=== PATIENT | female | born 1955 | race Caucasian/White ===

== ENCOUNTER 2016-10-18 07:16 | Observation (INO) | payer OTHER ==
[~2016-10-18] VITALS: Ht 160 cm; Wt 76.0 kg
[~2016-10-18 07:16] MED LIST: ADULT LOW DOSE81 MG PO; ALBUTEROL2.5 MG/NEB IN; AMLODIPINE10 M2 PO; AMOXI/CLAVULANA1 TAB PO; ATORVASTATIN CA10 MG PO; B12 PO; BENADRYL 25MG C25 MG PO; HYDROCODONE-APA1 TA2 PO; HYDROCODONE1 TABLET PO; LORTAB 5/3251 TAB PO; PHENERGAN 25MG.25 M1 PO; RELAFEN750 MG OR; SKELAXIN 800MG800 MG PO; TYLENOL W/CODEI1 TA2 PO; VITAMIN D31000 IU PO; ZOFRAN4 MG PO
[2016-10-18 07:20] VITALS: BP 129/79
[2016-10-18 07:47] LABS: LYMPH # 0.6 K/mm3 (0.7-4.5); LYMPH % 5.1 % (10-50.0)
[2016-10-18 07:57] LABS: HEMOGLOBIN 15.5 g/dL (12.2-16.2)
--- NOTE | 2016-10-18 07:58 | Emergency Room Report ---
History of Present Illness Time Seen by MD Sears Presenting Problem in Triage Pt arrived:Wheelchair Presenting Problem:has been vomiting "white slime" since 2099. 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 N Clinical Suspician of Infection? N Mental Status: 1 - Regular (Normal Baseline) Sepsis Risk:Low Sepsis Risk Have you (or family members/close friends) recently traveled outside the [place]? N If Yes, where/when: Have you had exposure to infectious disease within the past month? TB? Other? Specify: Comment The patient complains of epigastric pain, vomiting, and diarrhea. She says it started about 9 PM last night. She describes the vomitus as white and slimy. No fever. The epigastric pain is worse when she vomits. No pain at present. She says that she was treated for pneumonia with a Z-Tomas 2 weeks ago. She still has drainage and gagging from it. She did not have a chest x-ray at that time. ALLERGIES Coded Allergies: morphine (Intermediate, 12/17/15) Home Medications Reported Medications Amlodipine Besylate (Amlodipine) 10 MG PO DAILY Diphenhydramine Hcl (Benadryl 25MG CAP) 25 MG PO QHSP PRN SLEEP History Medical History General CAD? No Angina: No [place]: No Hypertension? Yes Hyperlipidemia? No CHF? No COPD? No Asthma? No Anemia? Yes Hernia? Yes Thyroid Problems? No Hypothyroidism? No CVA? No Seizures? No Diabetes? No End Stage Renal Disease? No UTI? No Stones? No GB Disease: No Nephritic Syndrome? No Asplenia? No Hepatitis? No Sickle Cell Disease? No Arthritis? Yes Cataracts? No Glaucoma? No MRSA? No TB? No Cancer? No Immunization Hx DT/Tetanus Unknown Flu Refused Pneumonia Refuses Surgical Hx Previous Surgery?Y Hysterectomy Tubal Ligation CYST REMOVAL FROM FOOT LEFT ANKLE Family History Family Hx Diabetes Yes CAD Yes Hypertension Yes Hyperlipidemia No Cancer Yes TB No Social History Smoking Hx Smoker: Never Smoker Tobacco: No Alcohol Alcohol: No Review of Systems All Other Systems Reviewed and Negative ENT see HPI. Respiratory denies shortness of breath Cardiovascular denies chest pain Gastrointestinal abdominal pain, diarrhea, vomiting Genitourinary denies: dysuria, frequency. Physical Exam Vital Signs Vital Signs Date Time Temp Pulse Resp B/P Pulse O2 O2 Flow FiO2 Ox Delivery Rate 10/18 1120 82 16 151/66 94 10/18 1022 84 16 111/57 92 10/18 0948 89 16 119/64 94 10/18 0859 98.6 80 20 130/80 98 10/18 0855 20 10/18 0816 98.5 80 20 128/70 98 10/18 0720 98.6 79 22 129/79 97 General Appearance normal appearance, WD/WN Eye Exam - bilateral eye normal exam, bilateral eye PERRL, bilateral eye EOMI Ear, Nose, Throat hearing grossly normal, normal ENT inspection Neck normal inspection, non-tender, supple, full range of motion Respiratory Status Yes: trachea midline, chest symmetrical, non tender chest. No: respiratory distress. Lung Sounds bilateral: normal breath sounds, lungs clear. 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 Yes Micah was queried for this patient? Yes Reference #: [id number] Comment 3 rxs for norco, last was 12/10/16 Results/Orders Laboratory Tests 10/18/16 0835: Urine Color YELLOW, Urine Appearance CLEAR, Urine pH 7.0, Ur Specific [place] 1.015, Urine Protein TRACE H, Urine Ketones TRACE H, Urine Blood NEGATIVE, Urine Nitrate NEGATIVE, Urine Bilirubin NEGATIVE, Urine Urobilinogen 0.2, Ur Leukocyte Esterase NEGATIVE, Ur Squamous Epith Cells 3-5, Urine Bacteria 1+, Urine Mucus 2+, Urine Glucose TRACE H 10/18/16 0735: Troponin I < 0.02 10/18/16 0735: Sodium 138, Potassium 4.8, Chloride 101, Carbon Dioxide 24, BUN 12, Creatinine 0.8, Estimated Creat Clear 87, Estimated GFR (MDRD) 72, Glucose 212 H, Calcium 8.8, Total Bilirubin 0.7, AST 34, ALT 30, Alkaline Phosphatase 134 H, Total Protein 7.9, Albumin 3.7, Globulin 4.2 H, Albumin/Globulin Ratio 0.9 L, Amylase 95, Lipase 90, WBC 11.2 H, RBC 4.70, Hgb 15.5, Hct 45.9, MCV 97.7, RDW 13.2, Plt Count 439 H, MPV 5.9 L, Gran % 93.0 H, Gran # 10.4 H, Total Counted 100, Lymphocytes % 5.1 L, Monocytes % 0.9 L, Eosinophils % 1.0, Basophils % 0.1, Neutrophils 90 H, Lymphocytes (Manual) 7 L, Lymphocytes # 0.6 L, Monocytes (Manual) 3, Monocytes # 0.1, Eosinophils # 0.1, Basophils # 0.0, Platelet Estimate MOD INCREASE, Stomatocytes 1+, PUBS MCHC 33.8, MCH 33.0 H Current Medication Orders Sig/Mallory Start time Last Medication Dose Route Stop Time Status Admin Ondansetron HCl 0 .STK-MED ONE 10/18 0948 DC .ROUTE Ondansetron HCl 4 MG ONCE ONE 10/18 0845 DC 10/18 IV 10/18 0946 0949 Hydromorphone HCl 0.5 MG ONCE ONE 10/18 0900 DCr 10/18 IV 10/18 0901 0855 Hydromorphone HCl 0 .STK-MED ONE 10/18 0854 DCr .ROUTE Ondansetron HCl 4 MG ONCE ONE 10/18 0800 DC 10/18 IV 10/18 0801 0751 Ondansetron HCl 0 .STK-MED ONE 10/18 0751 DC .ROUTE Sodium Chloride 1,000 ML .Q1H1M 10/18 0745 DC 10/18 IV 10/18 0845 0743 Sodium Chloride 10 ML PRN PRN 10/18 0745 AC IV 10/19 0731 Sodium Chloride 1,000 ML .STK-MED ONE 10/18 0733 DC IV Sodium Chloride 10 ML PRN PRN 10/18 0730 AC IV 10/19 0729 Orders Procedure Date/time Status Decision to admit 10/18 1111 Active DIARRHEA PANEL, PCR 04/11 0809 Active ELECTROCARDIOGRAM REQUEST 10/18 805 Active TROPONIN I 10/18 805 Complete DIFFERENTIAL-WBC 10/18 734 Complete IV SALINE LOCK 10/18 730 Active URINALYSIS/COMPLETE 10/18 730 Complete LIPASE 10/18 730 Complete CBC WITH AUTO DIFF 10/18 730 Complete CHEM 12 PROFILE 10/18 730 Complete AMYLASE 10/18 730 Complete 12 LEAD EKG-ZACHARY (INITIAL) 10/18 UNK Active CM/EKG CM/EKG Comments EKG interpreted by Arturo Santo MD: Rhythm: sinus Rate: 80 [place]: normal Ectopy: none Conduction: normal ST Segment Changes: none T Wave Changes: Nonspecific Q Waves: none No evidence of acute ischemia or injury No change from prior electrocardiogram XRAY/CT/US XRAY/CT/US XRAY chest Comment X-ray interpreted by Arturo Santo M.D. No infiltrate, pneumothorax, pleural effusion, or wide mediastinum. Progress - 8:45 AM: Recheck patient and discussed results. She states epigastric pain is returned and she is requesting pain medication. She states that she was admitted in August for a "bug" with abdominal pain, vomiting and diarrhea. She says she was also diagnosed with a urinary tract infection. She had a CT scan and gallbladder ultrasound done at that time. Results were reviewed by me. I also reviewed her emergency department record and discharge summary from that visit. discussed blood sugar results. reviewed prior results - elevated in the past also. The patient says she is unaware that her blood sugar has ever been elevated. Advised to follow-up with this result with her primary care physician. 9:40 AM: Patient states that she vomited at the time she was getting pain medication. Currently states she just feels drowsy. Request another dose of nausea medicine. 11 AM: Recheck patient. She denies nausea or pain, but says her hands feel numb. She says she doesn't feel well and would prefer that I call her physician to see if he will admit her for observation. 11:11 AM: I have discussed the case with Dr. Barton who agrees to admit the patient to the hospital. We discussed the patient's clinical information, including history, exam, laboratory and radiology results and ED course. Per hospital procedure, I will write temporary bridge inpatient orders on the patient. Specific orders requested by the admitting physician: hydration Departure Departure Disposition Still a Patient Clinical Impression Primary Impression: Epigastric pain Secondary Impressions: Diarrhea Qualifiers: Diarrhea type: unspecified type Qualified Code: R19.7 - Diarrhea, unspecified Vomiting Qualifiers: Vomiting type: unspecified Vomiting Intractability: intractable Nausea presence: with nausea Qualified Code: R11.2 - Nausea with vomiting, unspecified Condition STABLE Referrals Cody Barton MD (Family) ED Critical Care Critical Care No at [phone]
[2016-10-18 08:35] LABS: NEUTROPHILS 90 % (42-76)
[2016-10-18 08:37] LABS: STOMATOCYTE 1+
[2016-10-18 08:48] LABS: URINE BILIRUBIN - DIPSTICK NEGATIVE (NEG); URINE BLOOD NEGATIVE (NEG)
--- NOTE | 2016-10-18 09:29 | RADIOLOGY REPORT PS360 ---
CHEST(2 VIEWS-NOT PORTABLE) COMPARISON: Portable upright chest 11/25/2015 HISTORY: Follow-up suspected pneumonia TECHNIQUE: PA and lateral chest FINDINGS: The lung lord are well expanded and appear clear of infiltrate. The cardiac silhouette and vascularity are normal and is no pleural fluid. IMPRESSION: Negative chest
[2016-10-18 13:30] VITALS: BP 138/65
[2016-10-18 13:31] VITALS: BP 138/65
[2016-10-18] MEDS ORDERED: ALENDRONATE SOD70 M1 PO (13:47)
[2016-10-18 15:33] VITALS: BP 131/74
--- NOTE | 2016-10-18 16:36 | HISTORY AND PHYSICAL REPORT ---
Demographics: Admit date: 10/18/16 Chief complaint: Vomiting PRIMARY DIAGNOSIS: gastritis Allergies: Coded Allergies: morphine (Intermediate, 12/17/15) History of present illness: History of present illness: 61-year-old female presented to the emergency department early this morning after approximately 9-10 hours of vomiting. Patient tells me yesterday she had abdominal cramping throughout the day. She ate supper around her usual time at around 9 PM began vomiting. 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 Patient regurgitated her supper in addition to that most of her emesis is described as white phlegm. In the emergency department vomiting seemed to cease. Patient felt quite poorly and decision was made to keep her for hydration with IV fluids, use Zofran as an antiemetic. Past medical history: Family HX Family Hx Insignificant No Diabetes Yes CAD Yes Hypertension Yes Hyperlipidemia No Cancer Yes TB No Immunization HX DT/Tetanus Unknown Flu Refused Pneumonia Refuses TB Test in last year No General CAD? No Angina: No [place]: No Hypertension? Yes Hyperlipidemia? No CHF? No COPD? No Asthma? No Anemia? Yes Hernia? Yes Thyroid Problems? No Hypothyroidism? No CVA? No Seizures? No Diabetes? No UTI? No Stones? No GB Disease: No Nephritic Syndrome? No Asplenia? No Hepatitis? No Sickle Cell Disease? No Arthritis? Yes Cataracts? No Glaucoma? No MRSA? No TB? No Cancer? No Past Surgical HX Previous Surgery?Y Hysterectomy Tubal Ligation CYST REMOVAL FROM FOOT LEFT ANKLE Current home meds: Reported Medications Amlodipine Besylate (Amlodipine) 10 MG PO DAILY Alendronate Sodium 70 MG PO WEEKLY #4 Diphenhydramine Hcl (Benadryl 25MG CAP) 25 MG PO QHSP PRN SLEEP Social Hx: Smoking HX Tobacco No Are you/the child exposed to second-hand smoke: No Alcohol Alcohol: No Hx of Drug Use Drug Use? No Review of systems: Constitutional weakness. Respiratory no symptoms reported. Cardiovascular no symptoms reported Gastrointestinal/Abdominal see HPI Genitourinary no symptoms reported. Musculoskeletal no symptoms reported. Neurological Yes: no symptoms reported. Exam: Lab data for last 24 hours: Laboratory Tests 10/18/16 0835: Urine Color YELLOW, Urine Appearance CLEAR, Urine pH 7.0, Ur Specific [place] 1.015, Urine Protein TRACE H, Urine Ketones TRACE H, Urine Blood NEGATIVE, Urine Nitrate NEGATIVE, Urine Bilirubin NEGATIVE, Urine Urobilinogen 0.2, Ur Leukocyte Esterase NEGATIVE, Ur Squamous Epith Cells 3-5, Urine Bacteria 1+, Urine Mucus 2+, Urine Glucose TRACE H 10/18/16 0735: Troponin I < 0.02 10/18/16 0735: Sodium 138, Potassium 4.8, Chloride 101, Carbon Dioxide 24, BUN 12, Creatinine 0.8, Estimated Creat Clear 87, Estimated GFR (MDRD) 72, Glucose 212 H, Calcium 8.8, Total Bilirubin 0.7, AST 34, ALT 30, Alkaline Phosphatase 134 H, Total Protein 7.9, Albumin 3.7, Globulin 4.2 H, Albumin/Globulin Ratio 0.9 L, Amylase 95, Lipase 90, WBC 11.2 H, RBC 4.70, Hgb 15.5, Hct 45.9, MCV 97.7, RDW 13.2, Plt Count 439 H, MPV 5.9 L, Gran % 93.0 H, Gran # 10.4 H, Total Counted 100, Lymphocytes % 5.1 L, Monocytes % 0.9 L, Eosinophils % 1.0, Basophils % 0.1, Neutrophils 90 H, Lymphocytes (Manual) 7 L, Lymphocytes # 0.6 L, Monocytes (Manual) 3, Monocytes # 0.1, Eosinophils # 0.1, Basophils # 0.0, Platelet Estimate MOD INCREASE, Stomatocytes 1+, PUBS MCHC 33.8, MCH 33.0 H Admission vital signs: 1ST Vital Signs Result Date Time Pulse Ox 97 10/18 0720 B/P 129/79 10/18 07 Temp 98.6 10/18 07 Pulse 79 10/18 0720 Resp 22 10/18 0720 O2 Delivery ROOM AIR 10/18 1330 Additional information: 61-year-old female who appears older than her stated age. Affect is flat. She does not appear to be toxic. HEENT exam is grossly normal. Appropriate lungs are clear to auscultation. Heart has a regular rate and rhythm. Abdomen is soft, nontender nondistended. Of note patient does admit to epigastric pain with deep palpation. Patient has movement intact in all 4 extremities Plan: Problem List 1. Gastritis 2. Hyperglycemia Plan: 1. Rehydrate with IV fluids 2. Zofran for nausea, Pepcid 20 mg IV tonight 3. Clear liquids for supper and if she tolerates that advanced to full liquids for breakfast. at 1635
[2016-10-18 19:55] VITALS: BP 133/70
[2016-10-19 03:56] VITALS: BP 129/66
[2016-10-19 06:54] LABS: LYMPH # 2.3 K/mm3 (0.7-4.5); LYMPH % 40.5 % (10-50.0)
[2016-10-19 06:57] LABS: HEMOGLOBIN 13.6 g/dL (12.2-16.2)
--- NOTE | 2016-10-19 07:17 | ACUTE CARE PROGRESS NOTE (QUA) ---
Progress Notes Subjective Date 10/19/16 Time 0714 Note Patient notes she had a lot of upset stomach after her clear liquid diet at supper. She did not have any vomiting. She has not had any diarrhea. She is in no distress. Abdomen is soft, nontender, nondistended. Bowel sounds are present. Patient is recovering from her gastritis. We will see how she does with breakfast and lunch and then decide about discharge Objective Findings Last VS-Temp:98.1 B/P:129/66 Pulse:70 Resp:20 SaO2:94 ROOM AIR Last weight lbs:167 oz:9 K.006 Method:Bed Scales Laboratory Tests 10/19/16 0611: Sodium 142, Potassium 3.2 L, Chloride 107, Carbon Dioxide 26, BUN 5 L, Creatinine 0.8, Estimated Creat Clear 86, Estimated GFR (MDRD) 72, Glucose 107 H, Calcium 7.9 L, WBC 5.7, RBC 4.07 L, Hgb 13.6, Hct 39.9, MCV 98.0 H, RDW 13.2, Plt Count 338, MPV 5.8 L, Gran % 53.3, Gran # 3.0, Lymphocytes % 40.5, Monocytes % 4.6, Eosinophils % 0.9, Basophils % 0.7, Lymphocytes # 2.3, Monocytes # 0.3, Eosinophils # 0.1, Basophils # 0.0, PUBS MCHC 33.4, MCH 32.8 H 10/18/16 0835: Urine Color YELLOW, Urine Appearance CLEAR, Urine pH 7.0, Ur Specific [place] 1.015, Urine Protein TRACE H, Urine Ketones TRACE H, Urine Blood NEGATIVE, Urine Nitrate NEGATIVE, Urine Bilirubin NEGATIVE, Urine Urobilinogen 0.2, Ur Leukocyte Esterase NEGATIVE, Ur Squamous Epith Cells 3-5, Urine Bacteria 1+, Urine Mucus 2+, Urine Glucose TRACE H 10/18/16 0735: Troponin I < 0.02 10/18/16 0735: Sodium 138, Potassium 4.8, Chloride 101, Carbon Dioxide 24, BUN 12, Creatinine 0.8, Estimated Creat Clear 87, Estimated GFR (MDRD) 72, Glucose 212 H, Calcium 8.8, Total Bilirubin 0.7, AST 34, ALT 30, Alkaline Phosphatase 134 H, Total Protein 7.9, Albumin 3.7, Globulin 4.2 H, Albumin/Globulin Ratio 0.9 L, Amylase 95, Lipase 90, WBC 11.2 H, RBC 4.70, Hgb 15.5, Hct 45.9, MCV 97.7, RDW 13.2, Plt Count 439 H, MPV 5.9 L, Gran % 93.0 H, Gran # 10.4 H, Total Counted 100, Lymphocytes % 5.1 L, Monocytes % 0.9 L, Eosinophils % 1.0, Basophils % 0.1, Neutrophils 90 H, Lymphocytes (Manual) 7 L, Lymphocytes # 0.6 L, Monocytes (Manual) 3, Monocytes # 0.1, Eosinophils # 0.1, Basophils # 0.0, Platelet Estimate MOD INCREASE, Stomatocytes 1+, PUBS MCHC 33.8, MCH 33.0 H Assessment/Plan Problem List 1. Gastritis 2. Hyperglycemia Patient condition Improving This inpt stay is expected to cross 2 MNs from start of care No at 0716
--- NOTE | 2016-10-19 07:18 | PHARMACY CLINIC NOTE ---
Patient Demographics Patient Demographics Admission date: 10/18/16 Date: 10/19/16 Time: 0718 Allergies Coded Allergies: morphine (Intermediate, 12/17/15) HEIGHT- FT: 5 IN: 3.00 K.006 VTE General Information Labs: Laboratory Tests 10/19 10/18 0611 0735 Hematology Hgb (12.2 - 16.2 g/dL) 13.6 15.5 Hct (37.0 - 47.0 %) 39.9 45.9 Plt Count (142 - 424 K/mm3) 338 439 H Disclaimer The following section includes nursing documentation that has been pulled in for pharmacy review. Patient's VTE score: 1 Patient's VTE Risk: VERY LOW RISK Clinical trial participant? No VTE prophylaxis [id number] VTE prophylaxis ordered? Yes Type of prophylaxis/treatment: JAZMINE at 0718
[2016-10-19 08:00] VITALS: BP 126/64
[2016-10-19 09:40] VITALS: BP 126/64
[2016-10-19] MEDS ORDERED: ONDANSETRON4 MG PO (13:21)
[2016-10-19 16:53] VITALS: BP 126/64
--- NOTE | 2016-10-20 07:26 | Discharge Summary ---
Demographics Admit date: 10/18/16 Discharge date: 10/19/16 Discharge diagnoses Problem List 1. Gastritis 2. Hyperglycemia History of present illness History of present illness 61-year-old female presented to the emergency department early this morning after approximately 9-10 hours of vomiting. Patient tells me yesterday she had abdominal cramping throughout the day. She ate supper around her usual time at around 9 PM began vomiting. 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 Patient regurgitated her supper in addition to that most of her emesis is described as white phlegm. In the emergency department vomiting seemed to cease. Patient felt quite poorly and decision was made to keep her for hydration with IV fluids, use Zofran as an antiemetic. Patient was admitted and started on normal saline. Clear liquid diet was ordered which the evening of admission cause some stomach cramping. Patient felt improved the following morning and diet was advanced to full liquids which she tolerated for both breakfast and lunch. When patient did not have any further problems with meals she was discharged home. She will follow-up in the office in one week. Medications Medications: Discharge meds are as noted. Follow up Follow up in office in: 7 DAYS with: Cody Barton MD at [phone]
[2016-10-20] MEDS ORDERED: PHENERGAN120 ML/BOT PO (10:08)
[2016-10-26] MEDS ORDERED: FLONASE 50 MCG16 GM (07:09)
[2016-10-26] MEDS ORDERED: CLARITIN 10MG T10 MG PO (07:10)
[2016-10-26] MEDS ORDERED: METOCLOPRAMIDE H5 M2 PO (14:13)
[2016-10-26] MEDS ORDERED: PEPCID20 MG PO (14:13)
== END 2016-10-19 17:00 | disposition home or self-care (01) ==
LOC: ER 07:16 → 2ND 11:30
PROVIDERS: Emergency Medicine
DX: K29.70 Gastritis, unspecified, without bleeding (principal)
CPT/HCPCS: G0378; J2405

== ENCOUNTER 2016-10-20 06:45 | Emergency (ER) | payer OTHER ==
[~2016-10-20] VITALS: Ht 160 cm; Wt 75.8 kg
[~2016-10-20 06:45] MED LIST changes: +ALENDRONATE SOD70 M1 PO; +ONDANSETRON4 MG PO
[2016-10-20 07:02] LABS: URINE BILIRUBIN - DIPSTICK NEGATIVE (NEG); URINE BLOOD NEGATIVE (NEG)
[2016-10-20 07:25] LABS: URINE SQUAMOUS CELLS OCC #/hpf (0-5)
[2016-10-20 07:29] LABS: LYMPH % 16.2 % (10-50.0)
--- NOTE | 2016-10-20 07:53 | Emergency Room Report ---
History of Present Illness Time Seen by [id number] Presenting Problem in Triage Pt arrived:Wheelchair Presenting Problem:nausea/vomiting/diarrhea/abdominal pain Onset of symptoms date/time:/ or onset unknown for:MEDICAL HX UNKNOWN Treatment Prior to Arrival: [employer] Provided by: Sepsis Risk Assessment: Temp: 97.7 B/P: 161/95 MAP: 127 Pulse: 71 Resp: 20 Recent fever? N Clinical Suspician of Infection? N Mental Status: 1 - Regular (Normal Baseline) Sepsis Risk:Low Sepsis Risk Have you (or family members/close friends) recently traveled outside the [place]? N If Yes, where/when: Have you had exposure to infectious disease within the past month? TB? Other? Specify: Source patient, RN notes reviewed, family, old records Exam Limitations no limitations Comment pt with abd pain with vomiting and diarrhea with recent admit/d/c last pm Cardiac Chest Pain Chest pain indicative of cardiac No Timing/Duration this morning Severity moderate ALLERGIES Coded Allergies: morphine (Intermediate, 12/17/15) Home Medications Active Scripts ONDANSETRON HCL (Ondansetron HCl 4mg Tab) 4 MG PO Q8HP PRN NAUSEA #20 TAB Prov: 10/19/16 Reported Medications Amlodipine Besylate (Amlodipine) 10 MG PO DAILY Alendronate Sodium 70 MG PO WEEKLY #4 TAB Diphenhydramine Hcl (Benadryl 25MG CAP) 25 MG PO QHSP PRN SLEEP (Samia Ortega MD) History Medical History General CAD? No Angina: No [place]: No Hypertension? Yes Hyperlipidemia? No CHF? No COPD? No Asthma? No Anemia? Yes Hernia? Yes Thyroid Problems? No Hypothyroidism? No CVA? No Seizures? No Diabetes? No End Stage Renal Disease? No UTI? No Stones? No GB Disease: No Nephritic Syndrome? No Asplenia? No Hepatitis? No Sickle Cell Disease? No Arthritis? Yes Cataracts? No Glaucoma? No MRSA? No TB? No Cancer? No Immunization Hx DT/Tetanus Unknown Flu Refused Pneumonia Refuses Surgical Hx Previous Surgery?Y Hysterectomy Tubal Ligation CYST REMOVAL FROM FOOT LEFT ANKLE Family History Family Hx Diabetes Yes CAD Yes Hypertension Yes Hyperlipidemia No Cancer Yes TB No Social History Smoking Hx Smoker: Never Smoker Tobacco: No Alcohol Alcohol: No Drugs none (Samia Ortega MD) Review of Systems All Other Systems Reviewed and Negative Constitutional denies fever Eyes denies drainage, denies photophobia ENT denies: ear pain, epistaxis, throat pain. Respiratory denies cough, denies shortness of breath, denies wheezing Cardiovascular denies chest pain, denies syncope Gastrointestinal see HPI, diarrhea, vomiting Genitourinary denies: dysuria, frequency, hesitancy, hematuria. Musculoskeletal denies back pain, denies joint pain, denies neck pain Skin denies rash Psychiatric/Neurological denies headache, denies seizure (Samia Ortega MD) Physical Exam Vital Signs Vital Signs Date Time Temp Pulse Resp B/P Pulse O2 O2 Flow FiO2 Ox Delivery Rate 10/20 0908 69 20 160/83 100 10/20 0826 69 20 162/89 98 10/20 0738 97.7 71 20 161/95 100 10/20 0651 97.8 69 20 193/94 99 - WBC >12,000 or <4,000 or 10% bands? 2 or more SIRS Criteria Met? B/P:161/95 MAP:127 Creatinine >2.0? UA output<0.5ml/kg/hr for 2 hrs? Platelet count >100,000? Lactate >2.0mmol/1? INR >1.2 or PTT > than 60 sec? Evidence of Organ Dysfunction? Provider documented clinical suspician of infection? N Sepsis Criteria Count: 1 Sepsis Risk: Low Sepsis Risk General Appearance no apparent distress Eye Exam - bilateral eye PERRL, bilateral eye EOMI Ear, Nose, Throat normal ENT inspection Neck supple Respiratory Status No: respiratory distress. Cardiovascular regular rate/rhythm Peripheral Pulses Pulses normal Yes Gastrointestinal soft, no guarding, no rebound, tenderness Extremities normal inspection Strength 4 Upper Ext (L), 4 Upper Ext (R), 4 Lower Ext (L), 4 Lower Ext (R) Neurologic alert, solid plasterer II-XII nml as tested, no motor/sensory deficits Reflexes Reflexes normal Yes Mental status normal mood/affect Skin intact (Samia Ortega MD) Medical Decision Making LABS/Meds/Orders Pt receiving controlled substance in ED? No Results/Orders Laboratory Tests 10/20/16725: Creatine Kinase 62, CK-MB (CK-2) Rel Index 0.8, CK and CKMB Interp < 0.5, Troponin I < 0.02 10/20/16 0726: Sodium 140, Potassium 3.3 L, Chloride 102, Carbon Dioxide 25, BUN 5 L, Creatinine 1.0, Estimated Creat Clear 69, Estimated GFR (MDRD) 56 L, Glucose 173 H, Calcium 8.8, Total Bilirubin 0.7, AST 17, ALT 32, Alkaline Phosphatase 122 H, Total Protein 7.9, Albumin 3.8, Globulin 4.1 H, Albumin/Globulin Ratio 0.9 L, Amylase 54, Lipase 97, WBC 6.2, RBC 4.58, Hgb 15.0, Hct 44.0, MCV 96.2, RDW 13.1, Plt Count 337, MPV 5.7 L, Gran % 79.8, Gran # 5.0, Lymphocytes % 16.2 , Monocytes % 2.9, Eosinophils % 0.7, Basophils % 0.4, Lymphocytes # 1.0, Monocytes # 0.2, Eosinophils # 0.0, Basophils # 0.0, PUBS MCHC 34.2, MCH 32.9 H 10/20/16 0649: Urine Color YELLOW, Urine Appearance CLEAR, Urine pH 7.0, Ur Specific [place] 1.010, Urine Protein NEGATIVE, Urine Ketones 1+ H, Urine Blood NEGATIVE, Urine Nitrate NEGATIVE, Urine Bilirubin NEGATIVE, Urine Urobilinogen 0.2, Ur Leukocyte Esterase NEGATIVE, Urine WBC OCC, Ur Squamous Epith Cells OCC, Urine Bacteria 1+ , Urine Mucus OCC, Urine Glucose NEGATIVE Current Medication Orders Sig/Mallory Start time Last Medication Dose Route Stop Time Status Admin Promethazine HCl 0 .STK-MED ONE 10/20 0940 DC .ROUTE Promethazine HCl 6.25 MG ONCE ONE 10/20 914 DC 10/20 IV 10/20 0916 0943 Sodium Chloride 25 ML ONCE ONE 10/20 0815 DC 10/20 IV 10/20 0929 0944 Sodium Chloride 10 ML PRN PRN 10/20 0745 AC IV 10/21 0739 Ondansetron HCl 4 MG ONCE ONE 10/20 0700 DC 10/20 IV 10/20 0701 0710 Sodium Chloride 1,000 ML .Q1H1M 10/20 07 DC 10/20 IV 0710 Sodium Chloride 1,000 ML .STK-MED ONE 10/20 0700 DC IV Ondansetron HCl 0 .STK-MED ONE 10/20 0659 DC .ROUTE Orders Procedure Date/time Status DIET-NOTHING BY MOUTH 10/[address] SCAN REQ 10/20 0755 Complete 12 LEAD EKG-BESSON (INITIAL) 10/20 0745 Active ELECTROCARDIOGRAM REQUEST 10/20 0741 Active IV SALINE LOCK 10/20 0740 Active CARDIAC ENZYMES 10/20 0740 Complete URINALYSIS/COMPLETE 10/20 0658 Complete LIPASE 10/20 0658 Complete COMPLETE METABOLIC PANEL 10/20 0658 Complete CBC WITH AUTO DIFF 10/20 0658 Complete AMYLASE 10/20 0658 Complete 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 ST/Twave chgs (Shannon SONG,Samia Thompson) XRAY/CT/US XRAY/CT/US XRAY chest XR interpretation by reviewed by me (report reviewed) Xray Results normal/NAD, no infiltrates, normal heart size, normal lung inflation teja CT abdomen, pelvis CT interpretation by reviewed by me (report reviewed) Time results known: 900 CT Results normal/NAD (diverticulosis) Progress ED Progress Notes 1 Date 10/20/16 Time 0827 Comment Patient examined at change of shift at 0800; she has persistent vomiting, appears to be clear, but lungs are clear, abdomen soft with no m/r/g. Will repeat Zofran while awaiting CT results; dc note from Dr. Barton reviewed. states that on return home yesterday he gave her half a cup of soup and she vomited it at about midnight. No fever. States chest hurts when vomiting. Cardiac enzymes and EKG normal. CXR negative; labs negative. ED Progress Notes 2 Date 10/20/16 Time 0900 Comment Patient feeling requesting additional medication prior to trying sips of fluids. Labs and CT essentially normal other than diverticulosis. ED Progress Notes 3 Date 10/20/16 Time 1005 Comment Keeping fluids down PO s/p Phenergan IV; will f/u PCP 24 hours. (Bill SONG, Karrie Sutherland) Departure Departure Time of Disposition 0801 Disposition Still a Patient Condition STABLE Referrals Cody Barton MD (Family) ED Critical Care Critical Care No (Shannon SONG,Samia Thompson) Departure Time of Disposition 1006 Clinical Impression Primary Impression: Enteritis Secondary Impressions: Diverticulosis Qualifiers: Diverticulosis site: unspecified location Diverticulosis bleeding: diverticulosis without bleeding Qualified Code: K57.90 - Diverticulosis of intestine, part unspecified, without perforation or abscess without bleeding Vomiting Qualifiers: Vomiting type: unspecified Vomiting Intractability: non-intractable Nausea presence: with nausea Qualified Code: R11.2 - Nausea with vomiting, unspecified Patient Instructions DI for Vomiting -- Adult Additional Instructions See in one to two days; Rx for Phenergan; recommend clear liquids for the next 24 hours, advance as tolerated. Tylenol as needed for musculoskeletal pain; advise against Ibuprofen at this time as may cause GI upset. Discharge Counseling Counseled pt/family regarding diagnosis, test results, medications/RX, home care, follow up needs Prescriptions Current Visit Scripts Promethazine Hcl (Phenergan Syrup) 5 ML PO Q4H PRN #100 ML EVERY FOUR HOURS NEEDED FOR NAUSEA AND VOMITING ED Critical Care Critical Care No (Karrie Khan MD) at 0803 at 1009
--- NOTE | 2016-10-20 08:25 | RADIOLOGY REPORT PS360 ---
CHEST-PORTABLE HISTORY: PRODUCTIVE COUGH, REPORTING CHEST PAIN ORDERING PHYSICIAN: Karrie Khan MD PATIENT AGE: 61 years COMPARISON: 10/18/2016 FINDINGS: The cardiomediastinal silhouette and pulmonary vascularity are within normal limits. The lungs are clear without infiltrates, suspicious nodules, or pleural effusions. No acute bony abnormalities. IMPRESSION: Negative chest, no acute finding
--- NOTE | 2016-10-20 08:46 | RADIOLOGY REPORT PS360 ---
CT ABD PELVIS W/O CONTRAST CLINICAL INDICATION: Midepigastric pain with nausea and vomiting ABD PAIN ORDERING PHYSICIAN: Karrie Khan MD PATIENT AGE: 61 years COMPARISON: 08/20/2016 TECHNIQUE: Axial images obtained with sagittal and coronal reformats. PROCEDURE: Oral Contrast: None IV Contrast: None . FINDINGS: No acute finding in the lung bases. Small hiatal hernia. Mild hepatic steatosis. The spleen, adrenal glands, and pancreas are unremarkable. No radio opaque gallstones. No renal calculi or hydronephrosis. No evidence of appendicitis or diverticulitis. There is diverticulosis of the sigmoid colon. Prior hysterectomy. There is mild thickening of the descending colon with some minimal haziness of the pericolic fat which may be seen with colitis. There is mild fatty infiltration of the ascending colon and cecum and transverse colon which could also be seen with prior inflammatory change. No acute bony anomalies. IMPRESSION: 1. Possible mild colitis of the descending colon. 2. Sigmoid diverticulosis. No evidence of diverticulitis. 3. No other acute anomaly evident. 4. Other nonacute findings as described above
[2016-10-20] MEDS ORDERED: PHENERGAN120 ML/BOT PO (10:08)
[2016-10-20 10:31] VITALS: BP 160/83
[2016-10-26] MEDS ORDERED: FLONASE 50 MCG16 GM (07:09)
[2016-10-26] MEDS ORDERED: CLARITIN 10MG T10 MG PO (07:10)
[2016-10-26] MEDS ORDERED: METOCLOPRAMIDE H5 M2 PO (14:13)
[2016-10-26] MEDS ORDERED: PEPCID20 MG PO (14:13)
== END 2016-10-20 10:31 | disposition still patient (30) ==
LOC: ER 06:45
PROVIDERS: Emergency Medicine
DX: K57.90 Diverticulosis of intestine, part unspecified, without perforation or abscess without bleeding (principal); D64.9 Anemia, unspecified; I10 Essential (primary) hypertension; R11.2 Nausea with vomiting, unspecified
CPT/HCPCS: J2405